=== PATIENT | female | born 1985 ===

== ENCOUNTER 2017-03-17 06:40 | Inpatient (IN) | payer MEDICAID ==
[2017-03-17 06:41] VITALS: BMI 29.0
--- NOTE | 2017-03-17 07:36 | C.PDOC ---
History Of Present Illness 32 y/o female requesting alcohol detox, last drink of half pint of vodka at 4 am , normally drinks a gallon per day. pt seen at [facility] [place] at midnight, given 50 mg po librium. pt c/o shakiness, and not feeling well, and also having hallucinations. pt denies any other physical complaints. Time Seen by Provider: 03/17/17 07:00 Chief Complaint (Nursing): Substance Abuse History Per: Patient History/Exam Limitations: no limitations Onset/Duration Of Symptoms: Days (1) Current Symptoms Are (Timing): Worse Suicide/Self Injury Attempted (Context): None Modifying Factor(s): Alcohol Severity: Severe Recent travel outside of the [place]: No Past Medical History Reviewed: Historical Data, Nursing Documentation, Vital Signs Vital Signs: Last Vital Signs Temp 98.6 F 03/17/17 06:49 Pulse 73 03/17/17 07:45 Resp 20 03/17/17 07:45 BP 125/78 03/17/17 07:45 Pulse Ox 98 03/17/17 09:18 - Medical History PMH: Bipolar Disorder, Post Traumatic Stress Disorder Denies: Depression, Chronic Kidney Disease - HowAboutWe Procedures INJECT/INFUSE NEC (02/17/12) TETANUS TOXOID ADMINIST (12/13/01) Family History: States: Unknown Family Hx - Social History Hx Tobacco Use: Yes Hx Alcohol Use: Yes (one gallon vodka daily) Hx Substance Use: Yes (HEROIN- on methadone 200 mg/day) - Immunization History Hx Tetanus Toxoid Vaccination: No Hx Influenza Vaccination: No Hx Pneumococcal Vaccination: No Review Of Systems Constitutional: Negative for: Fever, Chills Cardiovascular: Positive for: Palpitations. Negative for: Chest Pain Respiratory: Negative for: Cough Gastrointestinal: Negative for: Nausea, Vomiting, Abdominal Pain Neurological: Positive for: Other (hallucinations, tremors) Psych: Positive for: Withdrawal (alcohol) Physical Exam - Physical Exam Appears: In Acute Distress (actibve etoh withdrawal) Skin: Normal Color, Warm, Dry Head: Atraumatic, Normacephalic Eye(s): bilateral: PERRL Oral Mucosa: Dry, Other (tongue fasiculations) Neck: Supple Chest: Symmetrical, No Tenderness Cardiovascular: Rhythm Regular (tachycardic) Respiratory: No Rales, No Rhonchi, No Wheezing Gastrointestinal/Abdominal: Soft, No Tenderness Extremity: Other (hand tremors) Neurological/Psych: Oriented x3, Normal Speech, Normal Cognition, Normal Motor, Normal Sensation ED Course And Treatment - Laboratory Results Result Diagrams: 03/17/17 07:47 03/17/17 07:47 ECG: Interpreted By Me, Viewed By Me ECG Rhythm: Sinus Rhythm ECG Interpretation: Normal Rate From EC (bpm) O2 Sat by Pulse Oximetry: 98 (RA) Pulse Ox Interpretation: Normal Medical Decision Making Medical Decision Makin32 y/o female in etoh withdrawal with hallucinations- plan: labs, ativan, iv fluids/vitamins, admission to tele with crisis team following patient. [address] Owen called, voice mail left for her. 08:46, called, left voice mail. [address] Owen, will admit to her service. Disposition - Disposition Disposition: HOSPITALIZED Disposition Time: 09:01 Condition: SERIOUS - Clinical Impression Clinical Impression: Alcohol withdrawal, UTI (urinary tract infection) Decision To Admit - Pt Status Changed To: Hospital Disposition Of: Inpatient - Admit Certification Admit to Inpatient:: After my assessment, the patient will require hospitalization for at least two midnights. This is because of the severity of symptoms shown, intensity of services needed, and/or the medical risk in this patient being treated as an outpatient. - InPatient: Physician Admission Certification: I certify that this patient requires 2 or more midnights of care for the following reason:: pt with etph w/d and will require detox after stabilized - . Bed Request Type: Telemetry Admitting Physician: Oscar Owen Patient Diagnosis: Alcohol withdrawal, UTI (urinary tract infection)
[2017-03-17] MEDS ORDERED: Multivitamin (MVI) 10 ML, Thiamine 100 MG, Folic Acid 1 MG in Sodium Chloride 0.9% 1,00... IV STA (07:38)
[2017-03-17 07:59] LABS: BASO # 0.1 K/uL (0.0-0.2); BASO % 1.1 % (0.0-2.0); EOS # 0.1 K/uL (0.0-0.7); EOS % 0.9 % (0.0-4.0); HEMATOCRIT 37.1 % (34.0-47.0); LYMPH # 1.5 K/uL (1.0-4.3); MEAN CELL VOLUME 93.6 fL (81.0-99.0); MEAN CORPUSCULAR HEMOGLOBIN 31.5 pg (27.0-31.0); MEAN CORPUSCULAR HGB CONC 33.7 g/dL (33.0-37.0); MEAN PLATELET VOLUME 7.9 fL (7.2-11.7); MONO # 0.6 K/uL (0.0-0.8); MONO % 8.1 % (0.0-10.0); WHITE BLOOD COUNT 7.2 K/uL (4.8-10.8)
[2017-03-17 08:16] LABS: ALB/GLOB RATIO 1.4 (1.0-2.1); ALCOHOL SERUM 51 mg/dl (0-10); ALKALINE PHOSPHATASE 94 U/L (38-126); ALT/SGPT 28 U/L (9-52); AST/SGOT 41 U/L (14-36); BILIRUBIN,TOTAL 0.6 mg/dL (0.2-1.3); BLOOD UREA NITROGEN 6 mg/dL (7-17); CALCIUM 8.4 mg/dl (8.6-10.4); CARBON DIOXIDE 24 mmol/L (22-30); CHLORIDE 99 mmol/L (98-107); GFR AFRICAN-AMERICAN > 60; GLUCOSE,RANDOM 106 mg/dL (65-105); MAGNESIUM 1.5 mg/dL (1.6-2.3); POTASSIUM 4.1 mmol/L (3.6-5.2); SODIUM 134 mmol/L (132-148)
[2017-03-17] MEDS ORDERED: Magnesium Sulfate 1 gm in D5W 1 GM/100 ML BAG IVPB ONE ×2 (08:20→08:26)
[2017-03-17 08:22] LABS: RBC URINE 3 /hpf (0-3); URINE BACTERIA OCC (<OCC); URINE BILIRUBIN NEGATIVE (NEGATIVE); URINE BLOOD NEGATIVE (NEGATIVE); URINE COLOR Yellow (YELLOW); URINE GLUCOSE (UA) NORMAL (Normal); URINE KETONE TRACE mg/dL (NEGATIVE); URINE LEUKOCYTE ESTERASE TRACE Leu/uL (Negative); URINE PROTEIN NEGATIVE (NEGATIVE); WBC URINE 5 /hpf (0-5)
--- NOTE | 2017-03-17 10:35 | RAD ---
HISTORY: admission COMPARISON: No prior. FINDINGS: LUNGS: No active pulmonary disease. PLEURA: No significant pleural effusion identified, no pneumothorax apparent. CARDIOVASCULAR: Normal. OSSEOUS STRUCTURES: No significant abnormalities. VISUALIZED UPPER ABDOMEN: Normal. OTHER FINDINGS: None. IMPRESSION: No active disease.
--- NOTE | 2017-03-17 11:25 | CP.PCM.PN ---
Subjective - Date & Time of Evaluation Date of Evaluation: 03/17/17 Time of Evaluation: 11:00 - Subjective Subjective: H&P dictated #[id number] Objective - Vital Signs/Intake and Output Vital Signs (last 24 hours): Temp Pulse Resp BP Pulse Ox 98.4 F 88 20 132/75 94 L 03/17/17 10:30 03/17/17 10:30 03/17/17 10:30 03/17/17 10:30 03/17/17 10:30 - Medications Medications: Current Medications Chlordiazepoxide (Librium) 0 mg PO Q6 KAYLA PRN Reason: Taper Stop: 03/21/17 11:59 Folic Acid (Folic Acid) 1 mg PO DAILY KAYLA Lorazepam (Ativan) 1 mg IVP Q6H PRN PRN Reason: Anxiety Multivitamins (Hexavitamin) 1 tab PO DAILY KAYLA Thiamine HCl (Vitamin B1 Tab) 100 mg PO DAILY KAYLA - Labs Labs: 03/17/17 07:47 03/17/17 07:47
--- NOTE | 2017-03-17 16:51 | PCM.PSYCH ---
Initial Psychiatric Evaluation - Initial Psychiatric Evaluation Type of Admission: Voluntary Chief Complaint (in patient's own words): "I need help"---> Alcohol detox History of Present Illness and Precipitating Events: This is a 32 year old female Bipolar Disorder, Post Traumatic Stress Disorder, who presents to the hospital requesting for alcohol detox. Patient's last drink was a half pint of vodka at 4 am. [place] [facility] [place], given 50 mg po librium. Patient is currently with withdraw symptoms; complaining of shakiness, some hallucination and not feeling well. 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, therefore, she missed her methadone dose for almost a week now ( 200mg PO daily) She states that she drinks 1 gallon of vodka daily or every 2 days since April She last used cocaine last week Has had multiple detox admission as well >20x rehabilitation Smokes 10 cigarettes per day Past psychiatric Hx: Bordeline personality disorder, Bipolar Disorder, Post Traumatic Stress Disorder, multiple detox admission as well >20x rehabilitation PMHx: Unknown cardiac murmur FHx: substance abuse and psychiatric hx Current Medications: Active Medications Generic Name Dose Route Start Last Admin Trade Name Freq PRN Reason Stop Dose Admin Chlordiazepoxide 50 mg 03/17/17 18:00 Librium PO 03/21/17 17:59 Q6 KAYLA Taper Folic Acid 1 mg 03/18/17 10:00 Folic Acid PO DAILY KAYLA Gabapentin 300 mg 03/17/17 18:00 Neurontin PO BID KAYLA Hydroxyzine HCl 25 mg 03/17/17 16:00 Atarax PO Q4H PRN Anxiety Ceftriaxone Sodium 1 gm/ 100 mls @ 100 mls/hr 03/17/17 11:30 03/17/17 12:40 Sodium Chloride IVPB 100 mls/hr DAILY KAYLA Administration Sodium Chloride 1,000 mls @ 100 mls/hr 03/17/17 14:45 Sodium Chloride 0.9% IV .Q10H KAYLA Lorazepam 1 mg 03/17/17 15:27 Ativan IVP Q4H PRN alcohol withdrawal Methadone HCl 5 mg 03/17/17 16:00 Methadone PO Q6H PRN OBJECTIVE opioid withdrawal sx Multivitamins 1 tab 03/18/17 10:00 Hexavitamin PO DAILY KAYLA Quetiapine Fumarate 100 mg 03/17/17 22:00 Seroquel PO HS KAYLA Thiamine HCl 100 mg 03/18/17 10:00 Vitamin B1 Tab PO DAILY KAYLA Past Psychiatric History - Past Psychiatric History Pertinent Medical Hx (Current Medical&Sleep Prob, Allergies): Allergies Allergy/AdvReac Type Severity Reaction Status Date / Time pentazocine AdvReac FEVER Verified 02/16/17 14:13 Methadone 200 mg PO DAILY 01/27/12 Review of Systems - Neurological Neurological: Weakness - Psychiatric Psychiatric: Anxiety, Irritability Mental Status Examination - Affect Affect: Depressed - Motor Activity Motor Activity: Calm - Reliability in Providing Information Reliability in Providing Information: Fair - Speech Speech: Organized - Mood Mood: Depressed, Anxious - Formal Thought Process Formal Thought Process: No Impairment - Obsessions/Compulsions Obsessions: No Compulsions: No - Cognitive Functions Orientation: Person, Place, Situation Sensorium: Drowsy Attention/Concentration: Attentive Judgement: Intact, as evidence by: Insight regarding need for hospitalization Memory: Recent intact, as evidence by: Ability to recall events of the day - Risk Risk: Withdrawal DSM 5 DX - DSM 5 DSM 5 Diagnosis: Alcohol d/o Opioid d/o, severe on maintenance of methadone 200mg PO daily Cocaine d/o, severe Borderline personality d/o - Recommended/Plan of Treatment Treatment Recommendations and Plan of Treatment: Librium taper Ativan 1mg IVP Q4H PRN Methadone maintenance Gabapentin 300mg PO BID Atarax 25mg PO Q4H PRN Seroquel 100mg PO HS Projected ELOS: 5 Prognosis: Good with treatment Discharge Plan and Discharge Criteria: Refer to rehab and IOP
--- NOTE | 2017-03-17 20:43 | HP ---
CHIEF COMPLAINT: Patient came into the ED requesting for alcohol detox. HISTORY OF PRESENT ILLNESS: Ms. Munguia is a 32-year-old female with past medical history of EtOH abuse, multiple admissions to the hospital, has been drinking since 11 years of age as per her, quit for 5 years in between, restarted drinking this April, drinking 1 gallon of vodka everyday. Last drink was 2:30 a.m. today, drank about half pint of vodka. Has been on methadone program at [facility] in [place]. Has been following up with doctors from [place]. Came into the ED requesting for alcohol detox. In the ED, patient was found to be tremulous, hallucinating, and with possible impending DTs, patient is being admitted to medical floor. When I examined the patient, she denies any headache or dizziness; denies any chest pain, shortness of breath or wheezing; denies any nausea, vomiting, abdominal pain, diarrhea or constipation; denies any urinary complaints; denies any leg pains or leg cramps; denies any other neurologic symptoms. She has been complaining of feeling anxious and tremulous. PAST MEDICAL HISTORY: As described, EtOH abuse, drug abuse, bipolar disorder, posttraumatic stress disorder. PAST SURGICAL HISTORY: Denies any past surgical history. FAMILY HISTORY: Diabetes mellitus in father. Mother is healthy, but alcohol abuse in mother's side. PERSONAL HISTORY: She is single, lives with friend, having 3 children, unemployed. ALLERGIES: SHE IS ALLERGIC TO PENTAZOCINE. CURRENT MEDICATIONS: She claims that she takes methadone 200 mg at home daily. SOCIAL HISTORY: She smokes 10 cigarettes per day, drinks 1 gallon of vodka everyday. Had been in AA programs earlier. REVIEW OF SYSTEMS: As described in history of present illness. All other systems reviewed and were found to be negative. PHYSICAL EXAMINATION: GENERAL: Young female, lying in bed, in no acute distress. VITAL SIGNS: Blood pressure 118/81, pulse 100, respirations 18, temperature 97.9 degrees Fahrenheit, O2 sat is 100% on room air. HEENT: Pupils equal, round, reacting to light and accommodation. Extraocular muscles intact. No icterus, no pallor, no oral thrush, no pharyngeal congestion, no nasal congestion. NECK: Supple. No JVD, no thyromegaly. CHEST: Moving equally bilaterally on respiration. LUNGS: Bilateral vesicular breath sounds. No wheezing, no rhonchi. CARDIOVASCULAR SYSTEM: S1, S2 present, regular. ABDOMEN: Soft, nontender. Bowel sounds present. No guarding, no rigidity, no rebound tenderness noted. CENTRAL NERVOUS SYSTEM: Alert, awake, oriented x3. Tremors of the upper extremities noted. EXTREMITIES: No edema. Palpable peripheral pulses. LABORATORY DATA: Done from the ED: WBC 7.2, hemoglobin 12.5, hematocrit 37.1, platelets 273. Sodium 134, potassium 4.1, chloride 99, bicarb 24, BUN 6, creatinine 0.4, glucose 106, calcium 8.4, magnesium 1.5, total bilirubin 0.6, AST 41, ALT 28, alkaline phosphatase 94, total protein 7.0, albumin 4.1. UA specific gravity 1.015, pH 7.0, ketones trace, nitrite positive, urobilinogen 2. Drug screen positive for methadone, cocaine, and benzos. Alcohol level is 51. Chest x-ray negative. EKG, normal sinus rhythm with no acute ST-T changes. ASSESSMENT: An young female with history of ethyl alcohol abuse, substance abuse, was in AA program and in methadone program, following up with doctors from [place], came into the ED requesting for alcohol detoxification and patient is found to be in acute intoxication with impending delirium tremens. The patient is being admitted to medical floor. 1. Acute alcohol intoxication with impending delirium tremens. 2. Ethyl alcohol abuse. 3. Polysubstance abuse. 4. Hypomagnesemia. 5. On methadone maintenance program as per the patient. PLAN: Patient is being admitted to Telemetry. We will give IV fluids, normal saline at 100 mL an hour. Patient received magnesium in the ED and received banana bag in the ED. We will give thiamine 100 mg p.o. daily, multivitamin 1 tab p.o. daily, folic acid 1 mg p.o. daily. We will start patient on Librium tapering doses. We will give Ativan 1 mg IV q. 6 p.r.n. for withdrawal symptoms, watch for alcohol withdrawal and impending DTs, seizure precaution, fall prevention. We will obtain psych evaluation, monitor her LFTs. We will contact methadone program for restarting her methadone dose, social media marketing manager for discharge planning. We will repeat labs in the morning. We will give Rocephin 1 g daily pending urine culture results for UTI. We will add further recommendations as her clinical course progresses. Oscar Owen MD
[2017-03-18] MEDS: Sodium Chloride 0.9% 1,000 ML IV SCH ×2 (02:45→11:02)
[2017-03-18 07:51] VITALS: RESP 18
[2017-03-18 07:56] LABS: BASO % 0.8 % (0.0-2.0); EOS # 0.2 K/uL (0.0-0.7); HEMATOCRIT 35.4 % (34.0-47.0); LYMPH # 1.9 K/uL (1.0-4.3); LYMPH % 31.5 % (20.0-40.0); MEAN CORPUSCULAR HEMOGLOBIN 32.1 pg (27.0-31.0); MEAN CORPUSCULAR HGB CONC 33.8 g/dL (33.0-37.0); MONO # 0.4 K/uL (0.0-0.8); MONO % 7.1 % (0.0-10.0); RED CELL DISTRIBUTION WIDTH 13.8 % (11.5-14.5); WHITE BLOOD COUNT 6.1 K/uL (4.8-10.8)
[2017-03-18 08:05] LABS: ALB/GLOB RATIO 1.3 (1.0-2.1); ALKALINE PHOSPHATASE 78 U/L (38-126); ALT/SGPT 18 U/L (9-52); AST/SGOT 27 U/L (14-36); BILIRUBIN,TOTAL 0.5 mg/dL (0.2-1.3); BLOOD UREA NITROGEN 8 mg/dL (7-17); CARBON DIOXIDE 24 mmol/L (22-30); CHLORIDE 104 mmol/L (98-107); CHOLESTEROL 129 mg/dL (0-199); GFR AFRICAN-AMERICAN > 60; GLUCOSE,RANDOM 80 mg/dL (65-105); MAGNESIUM 1.9 mg/dL (1.6-2.3); PHOSPHOROUS 3.1 mg/dL (2.5-4.5); POTASSIUM 3.4 mmol/L (3.6-5.2); SODIUM 134 mmol/L (132-148); TOTAL PROTEIN 5.5 g/dL (6.3-8.3)
[2017-03-18] MEDS ORDERED: Potassium Chloride 20 mEq ER Tab PO ONE ×3 (10:00→14:00)
[2017-03-18] MEDS ORDERED: Multiple Vitamins Tab PO SCH (10:00)
--- NOTE | 2017-03-18 10:43 | CP.PCM.PN ---
Subjective - Date & Time of Evaluation Date of Evaluation: 03/18/17 Time of Evaluation: 10:30 - Subjective Subjective: Progress note dictated #[id number] Objective - Vital Signs/Intake and Output Vital Signs (last 24 hours): Temp Pulse Resp BP Pulse Ox 97.8 F 85 18 104/75 97 03/18/17 07:00 03/18/17 08:02 03/18/17 07:00 03/18/17 07:00 03/18/17 07:00 Intake and Output: 03/18/17 03/18/17 06:59 18:59 Intake Total 2100 Balance 2100 - Medications Medications: Current Medications Chlordiazepoxide (Librium) 50 mg PO Q6 KAYLA PRN Reason: Taper Stop: 03/21/17 17:59 Last Admin: 03/18/17 05:48 Dose: 50 mg Folic Acid (Folic Acid) 1 mg PO DAILY KAYLA Last Admin: 03/18/17 10:05 Dose: 1 mg Gabapentin (Neurontin) 300 mg PO BID KAYLA Last Admin: 03/18/17 10:05 Dose: 300 mg Hydroxyzine HCl (Atarax) 25 mg PO Q4H PRN PRN Reason: Anxiety Sodium Chloride (Sodium Chloride 0.9%) 1,000 mls @ 100 mls/hr IV .Q10H KAYLA Last Admin: 03/18/17 02:45 Dose: 100 mls/hr Ceftriaxone Sodium 1 gm/ (Dextrose) 100 mls @ 100 mls/hr IVPB DAILY KAYLA Stop: 03/18/17 10:59 Last Admin: 03/18/17 10:05 Dose: 100 mls/hr Lorazepam (Ativan) 1 mg IVP Q4H PRN PRN Reason: alcohol withdrawal Methadone HCl (Methadone) 5 mg PO Q6H PRN PRN Reason: OBJECTIVE opioid withdrawal sx Multivitamins (Hexavitamin) 1 tab PO DAILY KAYLA Last Admin: 03/18/17 10:05 Dose: 1 tab Quetiapine Fumarate (Seroquel) 100 mg PO HS KAYLA Last Admin: 03/17/17 22:12 Dose: 100 mg Thiamine HCl (Vitamin B1 Tab) 100 mg PO DAILY KAYLA Last Admin: 03/18/17 10:05 Dose: 100 mg - Labs Labs: 03/18/17 07:44 03/18/17 07:44
[2017-03-18 11:00] VITALS: BP 126/81; TEMP 98; O2SAT 98
[2017-03-18] MEDS ORDERED: Methadone 40 mg Tab PO SCH (12:00)
[2017-03-18 12:45] VITALS: PULSE 84
--- NOTE | 2017-03-18 13:04 | PN ---
DATE: 03/18/2017 SUBJECTIVE: Patient is seen and examined at bedside. Patient is feeling anxious and tremulous. Denies any headache, dizziness. Complaining of generalized body aches. REVIEW OF SYSTEMS: All other systems reviewed and were found to be negative. PHYSICAL EXAMINATION: GENERAL: A young female, lying in bed, in no acute distress. VITAL SIGNS: Blood pressure 126/81, pulse 96, respirations 18, temperature 98 degrees Fahrenheit, O2 sat 98% on room air. HEENT: Pupils equal, round and reacting to light and accommodation. Extraocular muscles intact. No icterus, no pallor, no oral thrush, no pharyngeal congestion. NECK: Supple. No JVD, no thyromegaly. CHEST: Moving equally bilaterally on respiration. LUNGS: Bilateral vesicular breath sounds. No wheezing, no rhonchi. CARDIOVASCULAR SYSTEM: S1 and S2 present, regular. ABDOMEN: Soft, nontender. Bowel sounds present. No guarding, no rigidity, no rebound tenderness noted. CENTRAL NERVOUS SYSTEM: Alert, awake, oriented x3. No focal deficits noted. Tremors of the upper extremities noted. EXTREMITIES: No edema. Palpable peripheral pulses. MEDICATIONS: Include Librium taper, folic acid 1 mg daily, Neurontin 300 mg p.o. b.i.d., Atarax 25 mg as needed, Ativan 1 mg IV push q. 4 hours p.r.n., methadone 5 mg p.o. q. 6 hours p.r.n., multivitamin 1 tab daily, Seroquel 100 mg p.o. at bedtime, IV fluids, normal saline at 100 mL an hour, thiamine 100 mg p.o. daily. LABORATORY DATA: From this morning, WBC 6.1, hemoglobin 12.0, hematocrit 35, platelets 221. Sodium 134, potassium 3.4, chloride 104, bicarb 24, BUN 8, creatinine 0.6, glucose 80, calcium 8.6, phosphorus 3.1, magnesium 1.9, total bilirubin 0.5, AST 27, ALT 18, alkaline phosphatase 78, cholesterol 129, LDL 35, HDL 71, TSH 1.9. Urine culture pending results. ASSESSMENT AND PLAN: Young female with history of ethyl alcohol abuse, polysubstance abuse, status post hypomagnesemia, admitted for ethyl alcohol intoxication and impending delirium tremens. We will continue with current medication, psychiatric consult appreciated, on Librium tapering doses, Ativan as needed. We will request drug abuse social worker for discharge planning. We will add further recommendation as her clinical course progresses. Oscar Owen MD
--- NOTE | 2017-03-18 16:27 | PCM.PYCHPN ---
Psychiatric Progress Note - Psychiatric Progress Note Patient seen today, length of contact: 15 minutes Patient Chief Complaint: "I feel sick" Problems Identified/Issues Discussed: The pt is seen and evaluated at . No new symptoms reported, improving slowly and needs more time No SEs from medications, risks discussed. Patient states that she feels sick and experiencing cold and hot flushes Medication Change: Yes (Increased methdone PRN dose 20-40mg PO ) Medical Record Reviewed: Yes Mental Status Examination - Cognitive Function Orientation: Person, Place, Situation Memory: Intact Attention: WNL Concentration: WNL Association: WNL - Mood Mood: Depressed, Anxious - Affect Affect: Depressed - Formal Thought Process Formal Thought Process: No Impairment Goal/Treatment Plan - Goal/Treatment Plan Progress Toward Problem(s) and Goals/Treatment Plan: Librium taper Ativan 1mg IVP Q4H PRN Methadone PRN dose increase from 20mg prn ---> 40mg PO daily Gabapentin 300mg PO BID Atarax 25mg PO Q4H PRN Seroquel 100mg PO HS
--- NOTE | 2017-03-18 23:22 | CARD ---
APPROVED REPORT EKG Measurement Heart [id number] <Conclusion> Sinus rhythm with marked sinus arrhythmia Otherwise normal ECG
== END 2017-03-18 16:40 | disposition left against medical advice (07) | DRG 749 ==
LOC: C.ER 06:40 → C.9E 08:58 → OBSVTOIN 09:15 → C.6T 12:32
PROVIDERS: ADMIT Internal Medicine; ATTEND Internal Medicine
PROC: HZ2ZZZZ Detoxification Services for Substance Abuse Treatment (ICD-10-PCS; principal; 2017-03-17)
PROC: HZ81ZZZ Medication Management for Substance Abuse Treatment, Methadone Maintenance (ICD-10-PCS; 2017-03-17)
DX: F10.230 Alcohol dependence with withdrawal, uncomplicated (principal); E83.42 Hypomagnesemia; N39.0 Urinary tract infection, site not specified; R44.3 Hallucinations, unspecified; F17.210 Nicotine dependence, cigarettes, uncomplicated; F31.9 Bipolar disorder, unspecified; F43.10 Post-traumatic stress disorder, unspecified; F60.3 Borderline personality disorder; Z83.3 Family history of diabetes mellitus